=== PATIENT | female | born 1985 | race Caucasian/White ===

== ENCOUNTER 2018-01-30 15:59 | Emergency (ER) | payer OTHER ==
[~2018-01-30] VITALS: Ht 172.7 cm; Wt 132.0 kg
[2018-01-30] MEDS ORDERED: SODIUM CHLORIDE 0.9% 1,000 ML IV ONE (19:22)
[2018-01-30] MEDS ORDERED: ONDANSETRON HCL 4MG/2ML VIAL IV ONE (19:30)
[2018-01-30 20:52] LABS: BASOPHILS % 0.3 % (0.0-2.0); EOSINOPHILS % 2.9 % (0.0-5.0); HEMATOCRIT. 33.5 % (36.0-48.0); HEMOGLOBIN. 11.7 g/dL (12.0-16.0); LYMPHOCYTES % 30.5 % (20.0-50.0); MEAN CORPUSCULAR HEMOGLOBIN 27.7 pg (28.0-32.0); MEAN CORPUSCULAR VOLUME 79.5 fL (81.0-99.0); MEAN PLATELET VOLUME 7.4 fl (7.4-10.4); MONOCYTES % 3.9 % (2.0-8.0); NEUTROPHILS % 62.4 % (40.0-76.0); PLATELET 291 x1000/uL (130-400); RED BLOOD CELL COUNT 4.22 mill/uL (4.2-5.4); RED CELL DISTRIBUTION WIDTH 14.3 % (11.6-14.6)
[2018-01-30 20:56] LABS: CHLORIDE 103 mEq/L (98-107)
[2018-01-30 21:33] LABS: B-HCG QUANTITATIVE 35325 mIU/mL (<3)
[2018-01-30 21:42] VITALS: BP 109/76
== END 2018-01-30 21:48 | disposition home or self-care (01) ==
LOC: ER 15:59
DX: O21.0 Mild hyperemesis gravidarum (principal); O26.891 Other specified pregnancy related conditions, first trimester; D72.829 Elevated white blood cell count, unspecified; O10.911 Unspecified pre-existing hypertension complicating pregnancy, first trimester; O24.311 Unspecified pre-existing diabetes mellitus in pregnancy, first trimester; E11.9 Type 2 diabetes mellitus without complications; Z3A.14 14 weeks gestation of pregnancy; Z98.890 Other specified postprocedural states
CPT/HCPCS: 36415; 76801; 76817; 80048; 84702; 85025; 96361; 96374; 99285; J2405; J7030; Z7610

== ENCOUNTER 2018-08-25 14:52 | Emergency (ER) | payer OTHER ==
[~2018-08-25] VITALS: Ht 167.6 cm; Wt 100.0 kg
[2018-08-25] MEDS ORDERED: IBUPROFEN 600MG TABLET PO ONE (15:45)
[2018-08-25 17:20] VITALS: BP 148/89
== END 2018-08-25 17:35 | disposition home or self-care (01) ==
LOC: ER 15:07
DX: S39.82XA Other specified injuries of lower back, initial encounter (principal); M79.602 Pain in left arm; R20.0 Anesthesia of skin; R51 Headache; V49.49XA Driver injured in collision with other motor vehicles in traffic accident, initial encounter; Y93.89 Activity, other specified; Y92.410 Unspecified street and highway as the place of occurrence of the external cause; I10 Essential (primary) hypertension; E11.9 Type 2 diabetes mellitus without complications
CPT/HCPCS: 72100; 99283

== ENCOUNTER 2018-10-07 22:59 | Inpatient (IN) | payer OTHER ==
[~2018-10-07] VITALS: Ht 172.7 cm; Wt 124.3 kg
[2018-10-08] MEDS ORDERED: KETOROLAC 30MG/ML VIAL IV ONE (00:15)
[2018-10-08] MEDS ORDERED: ACETAMINOPHEN 325MG TABLET PO ONE (00:15)
[2018-10-08] MEDS ORDERED: CEFTRIAXONE 1 G PREMIX 50 ML IV ONE (00:15)
[2018-10-08] MEDS ORDERED: SODIUM CHLORIDE 0.9% 1000ML BAG (SEPSIS BOLUS) IV ONE (00:15)
[2018-10-08 01:03] LABS: CHLORIDE 97 mEq/L (98-107)
[2018-10-08 01:04] LABS: HCG SCREEN NEGATIVE
[2018-10-08 01:07] LABS: HEMATOCRIT. 40.6 % (36.0-48.0); HEMOGLOBIN. 13.6 g/dL (12.0-16.0); MEAN CORPUSCULAR HEMOGLOBIN 26.7 pg (28.0-32.0); MEAN CORPUSCULAR VOLUME 79.8 fL (81.0-99.0); MEAN PLATELET VOLUME 8.2 fl (7.4-10.4); PLATELET 294 x1000/uL (130-400); RED BLOOD CELL COUNT 5.09 mill/uL (4.2-5.4); RED CELL DISTRIBUTION WIDTH 14.9 % (11.6-14.6)
[2018-10-08 01:50] LABS: CLARITY URINE CLEAR (CLEAR); COLOR URINE YELLOW (YELLOW); KETONES URINE TRACE (NEGATIVE); LEUKOCYTE ESTERASE URINE TRACE (NEGATIVE); NITRITE URINE POSITIVE (NEGATIVE); OCCULT BLOOD URINE 1+ (NEGATIVE); PH URINE 5.5 (4.5-8.0); PROTEIN URINE 3+ (NEGATIVE); SPECIFIC GRAVITY URINE 1.016 (1.005-1.030); UROBILINOGEN URINE 0.2 E.U./dL (0.2-1.0)
[2018-10-08] MEDS ORDERED: MORPHINE SULFATE 4 MG/ML CPJ (NOT FOR IM USE) IV STA (02:06)
[2018-10-08] MEDS ORDERED: ONDANSETRON HCL 4MG/2ML INJ IV STA (02:06)
[2018-10-08 03:00] LABS: PLATELET ESTIMATE NORMAL
[2018-10-08] MEDS ORDERED: KETOROLAC 30MG/ML VIAL IV PRN (08:30)
[2018-10-08] MEDS ORDERED: CLONIDINE 0.1MG TABLET PO PRN (16:15)
[2018-10-08] MEDS ORDERED: DOCUSATE SODIUM 100MG CAPSULE PO PRN (16:15)
[2018-10-08] MEDS ORDERED: ONDANSETRON HCL 4MG/2ML INJ IV PRN (16:15)
[2018-10-08] MEDS ORDERED: IPRATROPIUM/ALBUTEROL 0.5-3(2.5)MG/3ML NEB INH PRN (16:15)
[2018-10-08] MEDS: SODIUM CHLORIDE 0.9% 1,000 ML IV SCH ×2 (17:19→21:22)
[2018-10-08] MEDS: MORPHINE SULFATE 4 MG/ML CPJ (NOT FOR IM USE) IV PRN ×2 (17:22→21:17)
[2018-10-08] MEDS: ENOXAPARIN 40MG/0.4ML SYR SUBCUT SCH (19:07)
[2018-10-08] MEDS ORDERED: DEXTROSE 50% WATER 50ML SYRINGE IV PRN (20:00)
[2018-10-08 20:07] VITALS: BP 164/99
[2018-10-08 20:11] VITALS: BP 164/99
[2018-10-08] MEDS: INSULIN LISPRO 100 UNITS/ML SUBCUT SCH (21:00)
[2018-10-08] MEDS: BLOOD SUGAR DIAGNOSTIC STRIP TEST SCH (21:00)
[2018-10-08] MEDS ORDERED: LABE100T5 PO (21:52)
[2018-10-08] MEDS ORDERED: BACL-141 PO (21:52)
[2018-10-08] MEDS ORDERED: MELO-106 PO (21:52)
[2018-10-08] MEDS ORDERED: METF-416 PO (21:52)
[2018-10-08] MEDS ORDERED: TRAM50TA PO (21:52)
[2018-10-08] MEDS ORDERED: IBUP-2030 PO (21:52)
[2018-10-08] MEDS: KETOROLAC 30MG/ML VIAL IV PRN (23:18)
[2018-10-09] MEDS ORDERED: CEFTRIAXONE 1 G PREMIX 50 ML IV SCH
[2018-10-09 00:05] VITALS: BP 143/82
[2018-10-09 04:00] VITALS: BP 134/72
[2018-10-09] MEDS: MORPHINE SULFATE 4 MG/ML CPJ (NOT FOR IM USE) IV PRN ×4 (04:32→22:08)
[2018-10-09] MEDS: ENOXAPARIN 40MG/0.4ML SYR SUBCUT SCH ×2 (05:29→17:50)
[2018-10-09] MEDS: BLOOD SUGAR DIAGNOSTIC STRIP TEST SCH ×4 (07:40→22:12)
[2018-10-09 08:00] VITALS: BP 137/77
[2018-10-09] MEDS: INSULIN LISPRO 100 UNITS/ML SUBCUT SCH ×4 (08:10→22:33)
[2018-10-09] MEDS: SODIUM CHLORIDE 0.9% 1,000 ML IV SCH ×2 (08:34→17:49)
[2018-10-09] MEDS ORDERED: LEVO50TA PO (09:39)
[2018-10-09] MEDS: LABETALOL HCL 100MG TABLET PO SCH ×3 (11:32→22:09)
[2018-10-09 12:00] VITALS: BP 127/79
[2018-10-09] MEDS: KETOROLAC 30MG/ML VIAL IV PRN (13:10)
[2018-10-09 13:21] LABS: BASOPHILS % 0.7 % (0.0-2.0); EOSINOPHILS % 0.6 % (0.0-5.0); HEMOGLOBIN. 10.2 g/dL (12.0-16.0); LYMPHOCYTES % 22.1 % (20.0-50.0); MEAN CORPUSCULAR VOLUME 79.7 fL (81.0-99.0); MONOCYTES % 5.5 % (2.0-8.0); NEUTROPHILS % 71.1 % (40.0-76.0); PLATELET 165 x1000/uL (130-400); RED BLOOD CELL COUNT 3.77 mill/uL (4.2-5.4); RED CELL DISTRIBUTION WIDTH 14.8 % (11.6-14.6)
[2018-10-09 13:42] LABS: CHLORIDE 104 mEq/L (98-107)
[2018-10-09 16:00] VITALS: BP 107/55
[2018-10-09 20:00] VITALS: BP 145/84
[2018-10-10] VITALS: BP 132/73
[2018-10-10] MEDS: KETOROLAC 30MG/ML VIAL IV PRN (00:22)
[2018-10-10] MEDS ORDERED: CEFTRIAXONE 1 G PREMIX 50 ML IV SCH (01:00)
[2018-10-10] MEDS: MORPHINE SULFATE 4 MG/ML CPJ (NOT FOR IM USE) IV PRN ×4 (03:11→20:56)
[2018-10-10] MEDS: SODIUM CHLORIDE 0.9% 1,000 ML IV SCH ×3 (03:14→20:39)
[2018-10-10 04:00] VITALS: BP 149/85
[2018-10-10 06:47] LABS: BASOPHILS % 0.5 % (0.0-2.0); EOSINOPHILS % 2.9 % (0.0-5.0); HEMATOCRIT. 28.5 % (36.0-48.0); HEMOGLOBIN. 9.7 g/dL (12.0-16.0); LYMPHOCYTES % 35.6 % (20.0-50.0); MEAN CORPUSCULAR HEMOGLOBIN 27.2 pg (28.0-32.0); MEAN CORPUSCULAR VOLUME 80.2 fL (81.0-99.0); MEAN PLATELET VOLUME 7.9 fl (7.4-10.4); MONOCYTES % 6.1 % (2.0-8.0); NEUTROPHILS % 54.9 % (40.0-76.0); PLATELET 172 x1000/uL (130-400); RED BLOOD CELL COUNT 3.55 mill/uL (4.2-5.4); RED CELL DISTRIBUTION WIDTH 14.7 % (11.6-14.6)
[2018-10-10 06:55] LABS: CHLORIDE 105 mEq/L (98-107)
[2018-10-10] MEDS: BLOOD SUGAR DIAGNOSTIC STRIP TEST SCH ×4 (07:03→20:38)
[2018-10-10] MEDS: LEVOTHYROXINE SODIUM 50MCG TABLET PO SCH (07:03)
[2018-10-10] MEDS: LABETALOL HCL 100MG TABLET PO SCH ×3 (07:03→20:32)
[2018-10-10 08:00] VITALS: BP 159/94
[2018-10-10] MEDS: INSULIN LISPRO 100 UNITS/ML SUBCUT SCH ×4 (09:23→20:53)
[2018-10-10] MEDS: ENOXAPARIN 30MG/0.3ML SYR SUBCUT SCH ×2 (09:25→20:38)
[2018-10-10 12:00] VITALS: BP 157/82
[2018-10-10] MEDS: ACETAMINOPHEN 325MG TABLET PO PRN ×3 (12:34→20:32)
[2018-10-10 15:35] VITALS: BP 132/73
[2018-10-10] MEDS ORDERED: *NO ASPIRIN X 24 HOURS XX SCH (16:00)
[2018-10-10 20:00] VITALS: BP 160/96
[2018-10-10] MEDS ORDERED: AMIKACIN SULFATE 600 MG in SODIUM CHLORIDE 0.9% 100 ML IV SCH (22:00)
[2018-10-10] MEDS: MEROPENEM 1,000 MG in SODIUM CHLORIDE 0.9% 100 ML IV SCH (23:00)
[2018-10-11] VITALS: BP 138/74
[2018-10-11] MEDS: TRAZODONE HCL 100MG TABLET PO PRN (00:38)
[2018-10-11] MEDS: SODIUM CHLORIDE 0.9% 1,000 ML IV SCH ×3 (01:03→17:03)
[2018-10-11 04:00] VITALS: BP 158/96
[2018-10-11] MEDS: MEROPENEM 1,000 MG in SODIUM CHLORIDE 0.9% 100 ML IV SCH ×3 (06:01→22:40)
[2018-10-11] MEDS: MORPHINE SULFATE 4 MG/ML CPJ (NOT FOR IM USE) IV PRN ×4 (06:06→21:06)
[2018-10-11] MEDS: BLOOD SUGAR DIAGNOSTIC STRIP TEST SCH ×4 (06:12→21:07)
[2018-10-11] MEDS: LEVOTHYROXINE SODIUM 50MCG TABLET PO SCH (06:12)
[2018-10-11] MEDS: LABETALOL HCL 100MG TABLET PO SCH ×3 (06:12→21:05)
[2018-10-11] MEDS: INSULIN LISPRO 100 UNITS/ML SUBCUT SCH ×4 (06:25→21:23)
[2018-10-11 06:40] LABS: CHLORIDE 105 mEq/L (98-107)
[2018-10-11 07:33] LABS: BASOPHILS % 0.5 % (0.0-2.0); EOSINOPHILS % 3.2 % (0.0-5.0); HEMATOCRIT. 28.6 % (36.0-48.0); HEMOGLOBIN. 9.7 g/dL (12.0-16.0); LYMPHOCYTES % 39.2 % (20.0-50.0); MEAN CORPUSCULAR HEMOGLOBIN 26.7 pg (28.0-32.0); MEAN CORPUSCULAR VOLUME 79.1 fL (81.0-99.0); MONOCYTES % 5.7 % (2.0-8.0); NEUTROPHILS % 51.4 % (40.0-76.0); PLATELET 209 x1000/uL (130-400); RED BLOOD CELL COUNT 3.62 mill/uL (4.2-5.4); RED CELL DISTRIBUTION WIDTH 14.3 % (11.6-14.6)
[2018-10-11 08:00] VITALS: BP 127/64
[2018-10-11] MEDS: ENOXAPARIN 30MG/0.3ML SYR SUBCUT SCH ×2 (09:27→21:06)
[2018-10-11 10:25] VITALS: BP 134/71
[2018-10-11 14:55] VITALS: BP 122/83
[2018-10-11 20:00] VITALS: BP 133/77
[2018-10-12] VITALS (7 sets, daily range): BP systolic 132–174; BP diastolic 76–105
[2018-10-12] MEDS: SODIUM CHLORIDE 0.9% 1,000 ML IV SCH ×2 (01:18→11:35)
[2018-10-12] MEDS: TRAZODONE HCL 100MG TABLET PO PRN (01:18)
[2018-10-12] MEDS: MORPHINE SULFATE 4 MG/ML CPJ (NOT FOR IM USE) IV PRN ×3 (01:18→13:15)
[2018-10-12] MEDS: LABETALOL HCL 100MG TABLET PO SCH ×2 (06:31→13:53)
[2018-10-12] MEDS: MEROPENEM 1,000 MG in SODIUM CHLORIDE 0.9% 100 ML IV SCH ×2 (06:31→15:59)
[2018-10-12] MEDS: INSULIN LISPRO 100 UNITS/ML SUBCUT SCH ×3 (07:48→19:03)
[2018-10-12] MEDS: BLOOD SUGAR DIAGNOSTIC STRIP TEST SCH ×3 (07:49→18:35)
[2018-10-12] MEDS: LEVOTHYROXINE SODIUM 50MCG TABLET PO SCH (07:57)
[2018-10-12] MEDS: ENOXAPARIN 30MG/0.3ML SYR SUBCUT SCH (09:19)
== END 2018-10-12 21:00 | disposition home or self-care (01) | DRG 720 ==
LOC: ER 22:59 → 7WST 10-08 02:14 → ENRESERV 10-08 17:42
PROVIDERS: ADMIT Internal Medicine; ATTEND Internal Medicine
DX: A41.9 Sepsis, unspecified organism (principal); E87.1 Hypo-osmolality and hyponatremia; N13.6 Pyonephrosis; E03.9 Hypothyroidism, unspecified; E11.9 Type 2 diabetes mellitus without complications; E78.5 Hyperlipidemia, unspecified; I10 Essential (primary) hypertension; M51.9 Unspecified thoracic, thoracolumbar and lumbosacral intervertebral disc disorder; Z98.891 History of uterine scar from previous surgery; Z79.84 Long term (current) use of oral hypoglycemic drugs
CPT/HCPCS: 36415; 71045; 74176; 80048; 82962; 83605; 84145; 84484; 84703; 87077; 87186; 93005; 96365; 96375; 99291; J0278; J0696; J1650; J1815; J1885; J2185; J2270; J2405; J7030; J7050

== ENCOUNTER 2018-12-04 13:50 | Emergency (ER) | payer OTHER ==
[~2018-12-04] VITALS: Ht 172.7 cm; Wt 128.0 kg
[~2018-12-04 13:50] MED LIST: LABE100T5 PO; LEVO50TA PO; MELO-106 PO; METF-416 PO; TRAM50TA PO
[2018-12-04] MEDS ORDERED: SODIUM CHLORIDE 0.9% 1,000 ML IV ONE (16:21)
[2018-12-04] MEDS ORDERED: KETOROLAC 30MG/ML VIAL IV STA (16:21)
[2018-12-04] MEDS ORDERED: ONDANSETRON HCL 4MG/2ML INJ IV STA (16:21)
[2018-12-04 17:07] LABS: CLARITY URINE TURBID (CLEAR); COLOR URINE DARK YELLOW (YELLOW); KETONES URINE 1+ (NEGATIVE); LEUKOCYTE ESTERASE URINE 2+ (NEGATIVE); NITRITE URINE POSITIVE (NEGATIVE); OCCULT BLOOD URINE 1+ (NEGATIVE); PH URINE 5.5 (4.5-8.0); PROTEIN URINE 4+ (NEGATIVE); SPECIFIC GRAVITY URINE 1.024 (1.005-1.030); UROBILINOGEN URINE 0.2 E.U./dL (0.2-1.0)
[2018-12-04 17:09] LABS: BASOPHILS % 0.4 % (0.0-2.0); EOSINOPHILS % 1.5 % (0.0-5.0); HEMATOCRIT. 33.9 % (36.0-48.0); HEMOGLOBIN. 11.8 g/dL (12.0-16.0); LYMPHOCYTES % 33.5 % (20.0-50.0); MEAN CORPUSCULAR HEMOGLOBIN 27.9 pg (28.0-32.0); MEAN CORPUSCULAR VOLUME 80.2 fL (81.0-99.0); MEAN PLATELET VOLUME 7.7 fl (7.4-10.4); MONOCYTES % 4.5 % (2.0-8.0); NEUTROPHILS % 60.1 % (40.0-76.0); PLATELET 247 x1000/uL (130-400); RED BLOOD CELL COUNT 4.23 mill/uL (4.2-5.4); RED CELL DISTRIBUTION WIDTH 14.7 % (11.6-14.6)
[2018-12-04] MEDS ORDERED: CEFTRIAXONE 1 G PREMIX 50 ML IV ONE (18:15)
[2018-12-04 18:16] LABS: CHLORIDE 103 mEq/L (98-107)
[2018-12-04] MEDS ORDERED: MORPHINE SULFATE 4 MG/ML CPJ (NOT FOR IM USE) IV ONE (18:30)
[2018-12-04 19:00] VITALS: BP 141/75
== END 2018-12-04 19:33 | disposition home or self-care (01) ==
LOC: ER 13:50
DX: N30.00 Acute cystitis without hematuria (principal); E11.65 Type 2 diabetes mellitus with hyperglycemia; I10 Essential (primary) hypertension; Z79.84 Long term (current) use of oral hypoglycemic drugs
CPT/HCPCS: 36415; 71045; 80053; 81003; 83605; 83690; 85025; 93005; 96361; 96374; 96375; 99284; J0696; J1885; J2270; J2405; J7030

== ENCOUNTER 2018-12-07 19:11 | Emergency (ER) | payer MEDICAID, OTHER ==
[~2018-12-07] VITALS: Ht 172.7 cm; Wt 127.0 kg
[2018-12-07] MEDS ORDERED: ONDANSETRON HCL 4MG/2ML INJ IV ONE (23:45)
[2018-12-07] MEDS ORDERED: KETOROLAC 30MG/ML VIAL IV ONE (23:45)
[2018-12-08 00:50] LABS: RED BLOOD CELL COUNT 4.04 mill/uL (4.2-5.4)
[2018-12-08 00:51] LABS: HEMATOCRIT. 32.1 % (36.0-48.0); MEAN CORPUSCULAR VOLUME 79.6 fL (81.0-99.0)
[2018-12-08 00:52] LABS: HEMOGLOBIN. 11.3 g/dL (12.0-16.0); MEAN PLATELET VOLUME 7.6 fl (7.4-10.4); PLATELET 252 x1000/uL (130-400); RED CELL DISTRIBUTION WIDTH 14.4 % (11.6-14.6)
[2018-12-08 03:09] LABS: PLATELET ESTIMATE NORMAL
[2018-12-08 04:00] VITALS: BP 164/89
== END 2018-12-08 08:02 | disposition home or self-care (01) ==
LOC: ER 23:37
DX: K29.70 Gastritis, unspecified, without bleeding (principal); E87.1 Hypo-osmolality and hyponatremia; D72.829 Elevated white blood cell count, unspecified
CPT/HCPCS: 36415; 74022; 81025; 85025; 96374; 96375; 99284; J1885; J2405; Z7610